=== PATIENT | female | born 1965 | race Caucasian/White ===

== ENCOUNTER 2019-06-02 11:13 | Emergency (ER) | payer OTHER, SELFPAY ==
--- NOTE | 2019-06-02 11:39 | DI.RAD.S_ITS ---
PROCEDURE: XR CHEST 1V INDICATIONS: chest pain TECHNIQUE: One view of the chest was acquired. COMPARISON: None. FINDINGS: Surgical changes and devices: None. Lungs and pleura: Increased density within the right upper lobe/right lung apex is present. There may also be slightly increased attenuation within the bilateral lung bases. The pulmonary vascular markings are slightly increased. No effusion or pneumothorax is appreciated. Mediastinum: Mediastinal contours appear normal. Heart size is normal. Bones and chest wall: No suspicious bony lesions. Overlying soft tissues appear unremarkable. IMPRESSION: 1. Mild right apical consolidation is suspicious for pneumonia. Followup imaging in 3-4 weeks is recommended to ensure complete resolution. 2. Slight increased attenuation within the bilateral lung bases may represent mild edema versus atelectasis. Dictated by: Aquilino Moore M.D. on 06/02/2019 at 11:15 Approved by: Aquilino Moore M.D. on 06/02/2019 at 11:17
[2019-06-02 11:43] VITALS: BP 130/80; PULSE 77; RESP 14; TEMP 36.3; O2SAT 100
[2019-06-02 11:45] LABS: Add Manual Diff / Slide Review NO; Basophils Absolute Auto 0 /uL (0-100); Basophils Percent Auto 0.5 % (0-2); Eosinophils Absolute Auto 0 /uL (0-450); Eosinophils Percent Auto 0.1 % (2-4); Hematocrit 39.4 % (36-46); Hemoglobin 13.4 g/dL (12.0-16.0); Lymphocytes Absolute Auto 1300 /uL (1100-4500); Lymphocytes Percent Auto 33.6 % (25-40); Mean Corpuscular HGB Conc 33.9 % (30-36); Mean Corpuscular Volume 97.3 fL (80-100); Monocytes Absolute Auto 400 /uL (0-900); Neutrophils Absolute Auto 2300 /uL (1500-7000); Neutrophils Percent Auto 56.8 % (50-75); Platelet Count 317 X10^3/uL (150-400); Red Blood Cell Count 4.05 X10^6/uL (4.0-5.2); Red Cell Distribution Width 13.5 % (11.6-14.8)
[2019-06-02 11:53] LABS: INR 1.1 (0.9-1.3); Prothrombin Time 12.1 SECONDS (10.1-12.7)
[2019-06-02 11:57] LABS: Alanine Aminotransferase 19 IU/L (9-52); Albumin 3.9 g/dL (3.5-5.0); Albumin Globulin Ratio 1.4 (1.0-2.8); Alkaline Phosphatase 44 U/L (38-126); Aspartate Aminotransferase 25 IU/L (14-36); BUN Creatinine Ratio 27.1 (6-22); Bilirubin Total 0.8 mg/dL (0.2-1.3); Blood Urea Nitrogen 19 mg/dL (7-17); Calcium 9.6 mg/dL (8.4-10.2); Carbon Dioxide 28 mmol/L (22-32); Chloride 102 mmol/L (98-107); Creatine Kinase 36 U/L (30-135); Estimated Glomerular Filt Rate > 60.0 mL/min (>60); Globulin 2.7 g/dL (1.7-4.1); Glucose 83 mg/dL (70-100); HEMOLYSIS 64 (0-50); Lipase 123 U/L (23-300); PTT Partial Thromboplastin Tim 36 SECONDS (26.4-36.2); Potassium 3.8 mmol/L (3.4-5.1); Sodium 137 mmol/L (137-145); Total Protein 6.6 g/dL (6.3-8.2)
[2019-06-02 12:03] LABS: Amylase 120 U/L (30-110)
[2019-06-02 12:07] LABS: Troponin I < 0.012 ng/mL (0.01-0.034)
[2019-06-02 12:12] VITALS: BP 134/87; PULSE 78; RESP 15; O2SAT 100
[2019-06-02 12:15] LABS: B Type Natriuretic Peptide < 100 (<100)
--- NOTE | 2019-06-02 12:15 | ED_ITS ---
HPI - Chest Pain <ABBIE Perry-BC - Last Filed: 06/02/19 15:43> General Chief Complaint: Chest Pain Stated Complaint: chest pain Time Seen by Provider: 06/02/19 11:36 Source: patient Mode of arrival: Ambulatory Limitations: no limitations History of Present Illness HPI narrative: The patient is a 54-year-old female nonsmoker with history of migraines who presents with a chief complaint of chest pain that started last night at 8:00 p.m.. She states it started substernal after eating her [place] food dinner. She states she is also under stress as her daughter is getting on Thursday. She denies any cardiac history, but endorses a history of migraines as well as an endometrial ablation. She states is nonradiating pain. She took 2 doses of omeprazole, 1 last night and 1 this morning to try to help. She states she did not feel any better. She denies any lightheadedness, dizziness, nausea vomiting, palpitations or swelling of extremities. She states that nothing makes the pain better or worse. She rates it a 5/10. She has not tried anything other than omeprazole. She was able to eat breakfast well this morning. Related Data Home Medications Medication Instructions Recorded Confirmed omeprazole 20 mg PO QAM 06/02/19 06/02/19 sumatriptan succinate 50 mg PO PRN PRN MDD 100 mg 06/02/19 06/02/19 Previous Rx's Medication Instructions Recorded levofloxacin [Levaquin] 750 mg PO DAILY #6 tab 06/02/19 Allergies Allergy/AdvReac Type Severity Reaction Status Date / Time Penicillins Allergy Rash Verified 06/02/19 12:18 Review of Systems <FAUSTO Perry - Last Filed: 06/02/19 15:43> Review of Systems Narrative: GENERAL: Denies chills, fatigue, malaise, fever, sweats. HEENT: Denies sinus pain, ear pain, sore throat, difficulty swallowing, dizziness. RESPIRATORY: Denies dyspnea, cough, wheezing, hemoptysis, sputum. CARDIOVASCULAR: See HPI GASTROINTESTINAL: See HPI : Denies dysuria, frequency, incontinence, hematuria, urinary retention. MUSCULOSKELETAL: denies weakness, joint pain, or bony pain SKIN: Denies rash, skin lesions, or other NEUROLOGIC: Denies weakness, headache, numbness, change in speech, confusion, seizures, incoordination. PSYCHIATRIC: No concerning psychosocial issues. 12 point review of systems is negative except for those stated above PFSH <DOM Prery - Last Filed: 06/02/19 15:43> Medical History GERD (gastroesophageal reflux disease) (Acute) Migraine (Acute) Surgical History History of endometrial ablation (Acute) Social History Smoking Status: Never smoker Social History Smoking Status: Never smoker Exam <DOM Perry - Last Filed: 06/02/19 15:43> Narrative Exam Narrative: GENERAL: Thin female in no acute distress HEAD: Atraumatic. Normocephalic. No temporal or scalp tenderness. EYES: Pupils equal round and reactive. Extraocular motions intact. No scleral icterus. No injection or drainage. ENT: Nose without bleeding, purulent drainage or septal hematoma. Throat without erythema, tonsillar hypertrophy or exudate. Uvula midline. Airway patent. NECK: Trachea midline. No JVD or lymphadenopathy. Supple, nontender, no meningeal signs. CARDIOVASCULAR: Regular rate and rhythm without murmurs, gallops, or rubs. RESPIRATORY: Clear to auscultation. Breath sounds equal bilaterally. No wheezes, rales, or rhonchi. No cough. No increased respiratory effort. No accessory muscle use. No stridor. No retractions. GASTROINTESTINAL: Abdomen soft, non-tender, nondistended. No hepato- splenomegaly, or palpable masses. No guarding. Active bowel sounds all 4 quadrants EXTREMITIES: No clubbing, cyanosis, or edema. No joint tenderness, effusion, or edema noted. BACK: Nontender without deformity or crepitance. No flank tenderness. NEURO: AOx3. SKIN: No rash or erythema. Initial Vital Signs Initial Vital Signs: Vital Signs Temperature 97.4 F L 06/02/19 11:43 Pulse Rate 77 06/02/19 11:43 Respiratory Rate 14 06/02/19 11:43 Blood Pressure 130/80 06/02/19 11:43 Pulse Oximetry 100 06/02/19 11:43 <Lydia Villalobos MD - Last Filed: 06/02/19 19:43> Initial Vital Signs Initial Vital Signs: Vital Signs Temperature 97.4 F L 06/02/19 11:43 Pulse Rate 77 06/02/19 11:43 Respiratory Rate 14 06/02/19 11:43 Blood Pressure 130/80 06/02/19 11:43 Pulse Oximetry 100 06/02/19 11:43 Scores <DOM Perry - Last Filed: 06/02/19 15:43> CURB-65 Confusion: No BUN >19mg/dL (>7mmol/L): No Respiratory rate greater or equal to 30: No SBP <90mmHg or DBP less or equal to 60mmHg: No Age 65 or Older: No CURB-65 Total: 0 Score 0-1 Outpatient care, Score 2 Inpt vs. Obs, Score 3 or over Inpt admit with ICU for score of 4-5 HEART Score Heart Score history: Slightly Suspicious Heart Score EKG: Normal Heart Score Age: 45-64 years old Heart Score risk factors: 1-2 risk factors Heart Score troponin: < or = to normal limit Heart Score Total: 2 Course <DOM Perry - Last Filed: 06/02/19 15:43> Orders Ordered: ED Orders 06/02/19 11:32 Amylase Stat B Type Natriuretic Peptide Stat Complete Blood Count AUTO DIFF Stat Comprehensive Metabolic Panel Stat Lipase Stat Partial Thromboplastin Time Stat Prothrombin Time INR Stat Troponin & CK Cardiac Panel Stat 06/02/19 11:39 XR chest 1V Stat 06/02/19 14:25 Troponin & CK Cardiac Panel Stat Discontinued Medications Al Hydrox/Mg Hydrox/Simethicone 20 ml/ Lidocaine HCl 15 ml 0 ml PO NOW ONE Stop: 06/02/19 11:49 Last Admin: 06/02/19 12:36 Dose: 35 ml Documented by: HARPREET Sodium Chloride (Normal Saline 0.9%) 1,000 mls @ 250 mls/hr IV CONT LEN Last Infusion: 06/02/19 15:41 Dose: 0 mls/hr Documented by: Admin: 06/02/19 12:28 Dose: 250 mls/hr Documented by: HARPREET Ketorolac Tromethamine (Toradol) 30 mg IV NOW ONE Stop: 06/02/19 14:46 Last Admin: 06/02/19 15:14 Dose: 30 mg Documented by: HARPREET Levofloxacin (Levaquin) 750 mg PO NOW ONE Stop: 06/02/19 12:33 Last Admin: 06/02/19 13:37 Dose: 750 mg Documented by: HARPREET Ondansetron HCl (Zofran) 4 mg IV NOW ONE Stop: 06/02/19 11:49 Last Admin: 06/02/19 12:30 Dose: 4 mg Documented by: HARPREET Pantoprazole Sodium (Protonix) 40 mg IV NOW ONE Stop: 06/02/19 11:49 Last Admin: 06/02/19 12:36 Dose: 40 mg Documented by: HARPREET Vital Signs Vital signs: Vital Signs - 8 hr 06/02/19 12:12 06/02/19 14:10 06/02/19 15:00 Temperature Pulse Rate 78 72 69 Respiratory Rate 15 12 18 Blood Pressure Blood Pressure [Right Arm] 134/87 141/96 H 126/92 H Pulse Oximetry 100 100 99 06/02/19 15:43 Temperature 97.5 F L Pulse Rate 71 Respiratory Rate 22 Blood Pressure 134/84 Blood Pressure [Right Arm] Pulse Oximetry 100 <Lydia Villalobos MD - Last Filed: 06/02/19 19:43> Orders Ordered: ED Orders 06/02/19 11:32 Amylase Stat B Type Natriuretic Peptide Stat Complete Blood Count AUTO DIFF Stat Comprehensive Metabolic Panel Stat Lipase Stat Partial Thromboplastin Time Stat Prothrombin Time INR Stat Troponin & CK Cardiac Panel Stat 06/02/19 11:39 XR chest 1V Stat 06/02/19 14:25 Troponin & CK Cardiac Panel Stat Discontinued Medications Al Hydrox/Mg Hydrox/Simethicone 20 ml/ Lidocaine HCl 15 ml 0 ml PO NOW ONE Stop: 06/02/19 11:49 Last Admin: 06/02/19 12:36 Dose: 35 ml Documented by: HARPREET Sodium Chloride (Normal Saline 0.9%) 1,000 mls @ 250 mls/hr IV CONT LEN Last Infusion: 06/02/19 15:41 Dose: 0 mls/hr Documented by: Admin: 06/02/19 12:28 Dose: 250 mls/hr Documented by: HARPREET Ketorolac Tromethamine (Toradol) 30 mg IV NOW ONE Stop: 06/02/19 14:46 Last Admin: 06/02/19 15:14 Dose: 30 mg Documented by: HARPREET Levofloxacin (Levaquin) 750 mg PO NOW ONE Stop: 06/02/19 12:33 Last Admin: 06/02/19 13:37 Dose: 750 mg Documented by: HARPREET Ondansetron HCl (Zofran) 4 mg IV NOW ONE Stop: 06/02/19 11:49 Last Admin: 06/02/19 12:30 Dose: 4 mg Documented by: HARPREET Pantoprazole Sodium (Protonix) 40 mg IV NOW ONE Stop: 06/02/19 11:49 Last Admin: 06/02/19 12:36 Dose: 40 mg Documented by: HARPREET Vital Signs Vital signs: Vital Signs - 8 hr 06/02/19 12:12 06/02/19 14:10 06/02/19 15:00 Temperature Pulse Rate 78 72 69 Respiratory Rate 15 12 18 Blood Pressure Blood Pressure [Right Arm] 134/87 141/96 H 126/92 H Pulse Oximetry 100 100 99 06/02/19 15:43 Temperature 97.5 F L Pulse Rate 71 Respiratory Rate 22 Blood Pressure 134/84 Blood Pressure [Right Arm] Pulse Oximetry 100 MDM - Chest Pain <DOM Perry - Last Filed: 06/02/19 15:43> Lab Data Result diagrams: 06/02/19 11:32 06/02/19 11:32 Labs: Lab Results 06/02/19 06/02/19 06/02/19 Range/Units 11:32 11:32 11:32 WBC 4.0 L (4.5-11.0) X10^3/uL RBC 4.05 (4.0-5.2) X10^6/uL Hgb 13.4 (12.0-16.0) g/dL Hct 39.4 (36-46) % MCV 97.3 (80-100) fL MCH 33.0 (26-34) PG MCHC 33.9 (30-36) % RDW 13.5 (11.6-14.8) % Plt Count 317 (150-400) X10^3/uL Neut % (Auto) 56.8 (50-75) % Lymph % (Auto) 33.6 (25-40) % [place] % (Auto) 9.0 (3-14) % Eos % (Auto) 0.1 L (2-4) % Baso % (Auto) 0.5 (0-2) % Neut # (Auto) 2300 (2431-7191) /uL Lymph # (Auto) 1300 (0959-6467) /uL [place] # (Auto) 400 (0-900) /uL Eos # (Auto) 0 (0-450) /uL Baso # (Auto) 0 (0-100) /uL PT 12.1 (10.1-12.7) SECONDS INR 1.1 (0.9-1.3) APTT 36 (26.4-36.2) SECONDS Sodium 137 (137-145) mmol/L Potassium 3.8 (3.4-5.1) mmol/L Chloride 102 (98-107) mmol/L Carbon Dioxide 28 (22-32) mmol/L BUN 19 H (7-17) mg/dL Creatinine 0.70 (0.52-1.04) mg/dL Estimated GFR > 60.0 (>60) mL/min BUN/Creatinine Ratio 27.1 H (6-22) Glucose 83 (70-100) mg/dL Calcium 9.6 (8.4-10.2) mg/dL Total Bilirubin 0.8 (0.2-1.3) mg/dL AST 25 (14-36) IU/L ALT 19 (9-52) IU/L Alkaline Phosphatase 44 (38-126) U/L Total Creatine Kinase 36 (30-135) U/L CK-MB (CK-2) TNP CK-MB (CK-2) Rel Index TNP Troponin I < 0.012 (0.01-0.034) ng/mL B-Natriuretic Peptide (<100) Total Protein 6.6 (6.3-8.2) g/dL Albumin 3.9 (3.5-5.0) g/dL Globulin 2.7 (1.7-4.1) g/dL Albumin/Globulin Ratio 1.4 (1.0-2.8) Amylase (30-110) U/L Lipase 123 (23-300) U/L 06/02/19 06/02/1919 Range/Units 11:32 11:32 14:25 WBC (4.5-11.0) X10^3/uL RBC (4.0-5.2) X10^6/uL Hgb (12.0-16.0) g/dL Hct (36-46) % MCV (80-100) fL MCH (26-34) PG MCHC (30-36) % RDW (11.6-14.8) % Plt Count (150-400) X10^3/uL Neut % (Auto) (50-75) % Lymph % (Auto) (25-40) % [place] % (Auto) (3-14) % Eos % (Auto) (2-4) % Baso % (Auto) (0-2) % Neut # (Auto) (7650-4125) /uL Lymph # (Auto) (3835-9359) /uL [place] # (Auto) (0-900) /uL Eos # (Auto) (0-450) /uL Baso # (Auto) (0-100) /uL PT (10.1-12.7) SECONDS INR (0.9-1.3) APTT (26.4-36.2) SECONDS Sodium (137-145) mmol/L Potassium (3.4-5.1) mmol/L Chloride (98-107) mmol/L Carbon Dioxide (22-32) mmol/L BUN (7-17) mg/dL Creatinine (0.52-1.04) mg/dL Estimated GFR (>60) mL/min BUN/Creatinine Ratio (6-22) Glucose (70-100) mg/dL Calcium (8.4-10.2) mg/dL Total Bilirubin (0.2-1.3) mg/dL AST (14-36) IU/L ALT (9-52) IU/L Alkaline Phosphatase (38-126) U/L Total Creatine Kinase 28 L (30-135) U/L CK-MB (CK-2) TNP CK-MB (CK-2) Rel Index TNP Troponin I < 0.012 (0.01-0.034) ng/mL B-Natriuretic Peptide < 100 (<100) Total Protein (6.3-8.2) g/dL Albumin (3.5-5.0) g/dL Globulin (1.7-4.1) g/dL Albumin/Globulin Ratio (1.0-2.8) Amylase 120 H (30-110) U/L Lipase (23-300) U/L Imaging Data Chest x-ray: Radiologist's impression: [address] [address] XRay Report Signed Patient: Catherine Grigsby DMR#: [id number] : 1965Acct:[id number] Age/Sex: 54 / FDate of Service: 06/02/19 Loc: ED Accession Number: [id number] Procedure: XR chest 1V Ordering Provider: Janae Ro-NICHOLAS PROCEDURE: XR CHEST 1V INDICATIONS: chest pain TECHNIQUE: One view of the chest was acquired. COMPARISON: None. FINDINGS: Surgical changes and devices: None. Lungs and pleura: Increased density within the right upper lobe/right lung apex is present. There may also be slightly increased attenuation within the bilateral lung bases. The pulmonary vascular markings are slightly increased. No effusion or pneumothorax is appreciated. Mediastinum: Mediastinal contours appear normal. Heart size is normal. Bones and chest wall: No suspicious bony lesions. Overlying soft tissues appear unremarkable. IMPRESSION: 1. Mild right apical consolidation is suspicious for pneumonia. Followup imaging in 3-4 weeks is recommended to ensure complete resolution. 2. Slight increased attenuation within the bilateral lung bases may represent mild edema versus atelectasis. Dictated by: Aquilino Moore M.D. on 06/02/2019 at 11:15 Approved by: Aquilino Moore M.D. on 06/02/2019 at 11:17 ECG Data Attestation: I personally reviewed and interpreted this ECG as follows: Interpretation: Sinus rhythm. Ventricular rate 67. No ectopy noted. No ST elevation or depression noted. P.r. interval 156. QRS duration 98. Viewed by Dr Villalobos. [facility] Narrative Medical decision making narrative: The patient is a 54-year-old female who presents with a chief complaint of chest pain since after eating [place] food last night. She has 2 negative troponins. Her heart score is 2. She is found to have a right apical pneumonia on x-ray, which could be causing her pain. Given her concerns that it could be GERD related, we did treat her with GI cocktail and Protonix in the emergency department. However her pain correlates with her location of pneumonia. I did initiate treatment with Levaquin in the emergency department. I encouraged rest, pushing fluids. She is hemodynamically stable, not hypoxic, has a curb 65 score of 0. She does not warrant inpatient treatment at this time. I discussed at length follow up with her PCP as well as come back to the emergency department for any acute concerns such as increased shortness of breath, concern of heart attack or stroke. She was given incentive spirometer teaching in the emergency department. Patient was discharged to her with no questions or concerns. States un derstanding of follow-up as well as return precautions. <Lydia Villalobos MD - Last Filed: 06/02/19 19:43> Lab Data Labs: Lab Results 06/02/19 06/02/19 06/02/19 Range/Units 11:32 11:32 11:32 WBC 4.0 L (4.5-11.0) X10^3/uL RBC 4.05 (4.0-5.2) X10^6/uL Hgb 13.4 (12.0-16.0) g/dL Hct 39.4 (36-46) % MCV 97.3 (80-100) fL MCH 33.0 (26-34) PG MCHC 33.9 (30-36) % RDW 13.5 (11.6-14.8) % Plt Count 317 (150-400) X10^3/uL Neut % (Auto) 56.8 (50-75) % Lymph % (Auto) 33.6 (25-40) % [place] % (Auto) 9.0 (3-14) % Eos % (Auto) 0.1 L (2-4) % Baso % (Auto) 0.5 (0-2) % Neut # (Auto) 2300 (8990-5796) /uL Lymph # (Auto) 1300 (2285-5956) /uL [place] # (Auto) 400 (0-900) /uL Eos # (Auto) 0 (0-450) /uL Baso # (Auto) 0 (0-100) /uL PT 12.1 (10.1-12.7) SECONDS INR 1.1 (0.9-1.3) APTT 36 (26.4-36.2) SECONDS Sodium 137 (137-145) mmol/L Potassium 3.8 (3.4-5.1) mmol/L Chloride 102 (98-107) mmol/L Carbon Dioxide 28 (22-32) mmol/L BUN 19 H (7-17) mg/dL Creatinine 0.70 (0.52-1.04) mg/dL Estimated GFR > 60.0 (>60) mL/min BUN/Creatinine Ratio 27.1 H (6-22) Glucose 83 (70-100) mg/dL Calcium 9.6 (8.4-10.2) mg/dL Total Bilirubin 0.8 (0.2-1.3) mg/dL AST 25 (14-36) IU/L ALT 19 (9-52) IU/L Alkaline Phosphatase 44 (38-126) U/L Total Creatine Kinase 36 (30-135) U/L CK-MB (CK-2) TNP CK-MB (CK-2) Rel Index TNP Troponin I < 0.012 (0.01-0.034) ng/mL B-Natriuretic Peptide (<100) Total Protein 6.6 (6.3-8.2) g/dL Albumin 3.9 (3.5-5.0) g/dL Globulin 2.7 (1.7-4.1) g/dL Albumin/Globulin Ratio 1.4 (1.0-2.8) Amylase (30-110) U/L Lipase 123 (23-300) U/L 06/02/19 06/02/19 06/02/19 Range/Units 11:32 11:32 14:25 WBC (4.5-11.0) X10^3/uL RBC (4.0-5.2) X10^6/uL Hgb (12.0-16.0) g/dL Hct (36-46) % MCV (80-100) fL MCH (26-34) PG MCHC (30-36) % RDW (11.6-14.8) % Plt Count (150-400) X10^3/uL Neut % (Auto) (50-75) % Lymph % (Auto) (25-40) % [place] % (Auto) (3-14) % Eos % (Auto) (2-4) % Baso % (Auto) (0-2) % Neut # (Auto) (0540-0963) /uL Lymph # (Auto) (2023-5289) /uL [place] # (Auto) (0-900) /uL Eos # (Auto) (0-450) /uL Baso # (Auto) (0-100) /uL PT (10.1-12.7) SECONDS INR (0.9-1.3) APTT (26.4-36.2) SECONDS Sodium (137-145) mmol/L Potassium (3.4-5.1) mmol/L Chloride (98-107) mmol/L Carbon Dioxide (22-32) mmol/L BUN (7-17) mg/dL Creatinine (0.52-1.04) mg/dL Estimated GFR (>60) mL/min BUN/Creatinine Ratio (6-22) Glucose (70-100) mg/dL Calcium (8.4-10.2) mg/dL Total Bilirubin (0.2-1.3) mg/dL AST (14-36) IU/L ALT (9-52) IU/L Alkaline Phosphatase (38-126) U/L Total Creatine Kinase 28 L (30-135) U/L CK-MB (CK-2) TNP CK-MB (CK-2) Rel Index TNP Troponin I < 0.012 (0.01-0.034) ng/mL B-Natriuretic Peptide < 100 (<100) Total Protein (6.3-8.2) g/dL Albumin (3.5-5.0) g/dL Globulin (1.7-4.1) g/dL Albumin/Globulin Ratio (1.0-2.8) Amylase 120 H (30-110) U/L Lipase (23-300) U/L Discharge Plan Departure Patient Disposition: Home Clinical Impression: Pneumonia Qualifiers: Pneumonia type: due to unspecified organism Laterality: right Lung location: upper lobe of lung Qualified Code(s): J18.1 - Lobar pneumonia, unspecified organism Discharge Date/Time: 06/02/19 15:42 Instructions: How to Use an Incentive Spirometer, DI for Pneumonia -- Adult, DI for Atypical Chest Pain Activity Restrictions/Additional Instructions: Today your x-ray shows pneumonia. We have started you on antibiotics. We have given you an incentive spirometer to use. Your EKG looked good, and you have two sets of negative cardiac enzymes. Please follow up with primary care provider soon as possible. Please come back to the emergency department for any acute concerns such as concern of heart attack, stroke, severe respiratory distress etc Please rest and push fluids. Prescriptions: New levofloxacin [Levaquin] 750 mg tablet 750 mg PO DAILY Qty: 6 RF: 0 No Action sumatriptan succinate 50 mg tablet 50 mg PO PRN MDD 100 mg PRN (Reason: migraine) RF: 0 omeprazole 20 mg capsule,delayed release(DR/EC) 20 mg PO QAM RF: 0
[2019-06-02] MEDS: SODIUM CHLORIDE 0.9% 1,000 ML 250 ML IV (12:28)
[2019-06-02] MEDS: ONDANSETRON 4 MG/2 ML INJ IV (12:30)
[2019-06-02] MEDS: MAG HYDROX/ALUMINUM/SIMETH SUS 20 ML, LIDOCAINE VISCOUS 2% 15 ML PO (12:36)
[2019-06-02] MEDS: PANTOPRAZOLE 40 MG VIAL IV (12:36)
[2019-06-02] MEDS: levoFLOXacin 250 MG TABLET 750 MG PO (13:37)
[2019-06-02 14:10] VITALS: BP 141/96; PULSE 72; RESP 12; O2SAT 100
[2019-06-02 14:43] LABS: Creatine Kinase 28 U/L (30-135)
[2019-06-02 14:56] LABS: Troponin I < 0.012 ng/mL (0.01-0.034)
[2019-06-02 15:00] VITALS: BP 126/92; PULSE 69; RESP 18; O2SAT 99
[2019-06-02] MEDS: KETOROLAC 60 MG/2 ML VIAL 30 MG IV (15:14)
[2019-06-02 15:43] VITALS: BP 134/84; PULSE 71; RESP 22; TEMP 36.4; O2SAT 100
== END 2019-06-02 15:42 | disposition home or self-care (01) ==
PROVIDERS: Emergency Provider Nurse Practitioner Family
DX: J18.1 Lobar pneumonia, unspecified organism (principal); R07.9 Chest pain, unspecified
CPT/HCPCS: 36415; 36591; 71045; 80053; 82150; 82550; 83690; 83880; 84484; 85025; 85610; 85730; 93005; 96361; 96374; 96375; 99283; 99285; C9113; J1885; J2405